=== PATIENT | female | born 1940 | race Caucasian/White ===

== ENCOUNTER 2019-09-30 06:02 | Day surgery (SDC) | payer BC, OTHER ==
[2019-09-29 17:24] VITALS: BMI 25.7
[2019-09-30] MEDS ORDERED: PROPOFOL 20 ML ONE ×2 (07:23)
[2019-09-30] MEDS ORDERED: SUCCINYLCHOLINE CHLORIDE 200 MG/10 ML SYRINGE ONE (07:23)
[2019-09-30] MEDS ORDERED: ROCURONIUM BROMIDE 100 MG/10 ML VIAL ONE (07:23)
[2019-09-30] MEDS ORDERED: ROPIVACAINE HCL 0.5% 30ML VIAL ONE (07:48)
[2019-09-30] MEDS ORDERED: MIDAZOLAM HCL 2 MG/2 ML SINGLE DOSE VIAL ONE ×2 (07:55)
[2019-09-30] MEDS ORDERED: ceFAZolin SODIUM 1 GM VIAL IVPB ONE (08:13)
[2019-09-30] MEDS ORDERED: EPHEDRINE SULFATE/0.9% NACL/PF 50 MG/10 ML SYRINGE NR ONE (09:17)
[2019-09-30] MEDS ORDERED: NEOSTIGMINE METHYLSULFATE 0.5 MG/ML - 10 ML MDV ONE (09:35)
[2019-09-30] MEDS ORDERED: ONDANSETRON 4 MG/2 ML VIAL IVPUSH PRN (10:26)
[2019-09-30] MEDS ORDERED: oxyCODONE HCL 5 MG TABLET PO PRN (10:26)
[2019-09-30] MEDS ORDERED: ceFAZolin SODIUM 1 GM VIAL ONE (10:27)
[2019-09-30 14:22] VITALS: BP 127/64; PULSE 52; TEMP 97.1
== END 2019-09-30 13:30 | disposition home or self-care (01) ==
LOC: JASU-SURG 06:02
PROVIDERS: ATTEND Orthopaedic Surgery
PROC: 0LQ24ZZ Repair Left Shoulder Tendon, Percutaneous Endoscopic Approach (ICD-10-PCS; principal; 2019-09-30 08:00)
PROC: 0RNK4ZZ Release Left Shoulder Joint, Percutaneous Endoscopic Approach (ICD-10-PCS; 2019-09-30 08:00)
DX: M75.42 Impingement syndrome of left shoulder (principal); M75.102 Unspecified rotator cuff tear or rupture of left shoulder, not specified as traumatic
CPT/HCPCS: 88304-TC; 94760

== ENCOUNTER 2024-07-30 12:26 | Emergency (ER) | payer OTHER, BC ==
[2024-07-30 13:10] VITALS: BMI 21.2
[2024-07-30] MEDS ORDERED: ACETAMINOPHEN 325 MG TABLET (FP) ONE (13:45)
[2024-07-30] MEDS: ACETAMINOPHEN 500 MG TABLET (FP) PO ONE (13:52)
[2024-07-30 14:47] LABS: ABSOLUTE IMMATURE GRANULOCYTES 0.05 x10^3/uL (0.0-0.031); BASOPHILS # 0.06 x10^3/uL (0.01-0.08); EOSINOPHIL % 5.5 % (0.7-5.8); EOSINOPHILS # 0.53 x10^3/uL (0.04-0.36); HEMATOCRIT 34.8 % (34.1-44.9); HEMOGLOBIN 10.7 g/dL (11.2-15.7); MCHC 30.7 g/dl (32.2-35.5); MEAN CELL VOLUME 85.3 fl (79.4-94.8); MEAN PLT VOLUME 10.2 fl (9.4-12.3); MONOCYTE # 0.82 x10^3/uL (0.24-0.86); MONOCYTE % 8.6 % (4.7-12.5); PLATELET COUNT 282 x10^3/uL (182-369)
[2024-07-30 18:12] LABS: INR 1.03 (0.83-1.09); PROTHROMBIN TIME (PATIENT) 11.3 SEC (9.7-13.0)
[2024-07-30 18:14] LABS: ACTIVATED PTT 29.3 SECONDS (25.2-36.5)
[2024-07-30 18:23] LABS: POTASSIUM 4.7 mmol/L (3.5-5.1)
[2024-07-30 18:24] LABS: CALCIUM 9.8 mg/dL (8.5-10.1)
[2024-07-30 18:25] LABS: ALBUMIN 3.7 g/dl (3.4-5.0); BLOOD UREA NITROGEN 29.2 mg/dL (7-18)
[2024-07-30 18:28] LABS: CREATININE 1.9 mg/dL (0.55-1.3)
[2024-07-30 18:30] LABS: BILIRUBIN,TOTAL 0.5 mg/dL (0.2-1); TOT PROT 6.9 g/dl (6.4-8.2)
[2024-07-30 20:35] VITALS: BP 101/81; PULSE 78; RESP 16; TEMP 97.5
[2024-07-30] MEDS: MECLIZINE HCL 25 MG TABLET (FP) PO ONE (21:00)
[2024-07-30] MEDS ORDERED: MECLIZINE HCL 25 MG TABLET (FP) ONE (21:02)
== END 2024-07-30 21:36 | disposition home or self-care (01) ==
LOC: JER 12:26
DX: R07.89 Other chest pain (principal); M25.561 Pain in right knee; X50.1XXA Overexertion from prolonged static or awkward postures, initial encounter; Y92.238 Other place in hospital as the place of occurrence of the external cause; Y93.01 Activity, walking, marching and hiking
CPT/HCPCS: 70450-TC; 71046-TC-FY; 71111-TC-FY; 71250-TC; 73562-TC-RT-FY; 74176-TC; 80053; 84484; 85025; 85610; 85730; 86850; 86900; 86901; 93005; 93010; 99285-25